=== PATIENT | male | born 1965 | race Caucasian/White ===

== ENCOUNTER 2023-03-19 18:10 | Emergency (ER) | payer OTHER, MEDICAID, SELFPAY ==
[2023-03-19] VITALS (28 sets, daily range): BP systolic 142–156; BP diastolic 94–111; PULSE 54–82; RESP 12–22; TEMP 36.6; O2SAT 96–98; BMI 31.4
--- NOTE | 2023-03-19 18:31 | PC.NURSE ---
pt presents to ED c/o weakness for the last 3 weeks. pt states that today he decided to take his bp and was running high last reading was 140's/104. pt states he takes lisinopril and amlodopine as prescribed. denies any other symptoms.
--- NOTE | 2023-03-19 18:35 | ED_ITS ---
HPI - Recheck/Abnormal Lab/Rx General Chief Complaint: Recheck/Abnormal Lab/Rx Stated Complaint: HIGH BLOOD PRESSURE ISSUES Time Seen by Provider: 03/19/23 18:35 Source: patient Mode of arrival: walk-in Limitations: no limitations History of Present Illness HPI narrative: Patient presents to emergency department complaining of weakness. Patient states he felt weak for the last 3 weeks. He does not have any other symptoms such as headache, visual disturbance, speech difficulty. He denies any chest pain, shortness of breath. He denies any nausea, vomiting, diarrhea, constipation, abdominal pain. Denies any flank pain, hematuria, dysuria. He denies any fever, chills, or cough. There are no sick contacts in household. He states he just felt weak in the last 3 weeks. His [id number] was in the household and she is a diabetic so she checked his blood sugar and it was 252 times. This is new. The patient is not on any medications and has never been diagnosed with diabetes. Patient also stated that they checked his blood pressure and it was 160s over 100. States the patient took his medication this morning. He did not take it yesterday. Related Data Home Medications Medication Instructions Recorded Confirmed amlodipine 10 mg tablet 10 mg PO DAILY 03/19/23 03/19/23 lisinopril 20 mg tablet 20 mg PO DAILY 03/19/23 03/19/23 Allergies Allergy/AdvReac Type Severity Reaction Status Date / Time No Known Drug Allergies Allergy Verified 03/19/23 18:20 Review of Systems ROS Status of ROS 10 or more systems reviewed and unremarkable except as noted in history and below [facility] Social History Smoking status: Former smoker Exam Narrative Exam Narrative: Nurses notes and vital signs reviewed and patient is not hypoxic. General: Nontoxic, Well-appearing and in no apparent distress. Skin: Warm, dry, no pallor noted. No Rash Head: Normocephalic, atraumatic. Neck: Supple, non-tender. Eye: Pupils are equal, round and EOMI. No scleral icterus. Ears, Nose, Mouth, and Throat: TM clear, no posterior oropharynx erythema or nasal mucosal hypertrophy, uvula is mid-line Oral mucosa is moist Cardiovascular: Regular Rate and Rhythm without murmur, gallop or rub. Respiratory: No accessory muscle use or respiratory distress. Lungs are clear to auscultation, no wheezing, rales or rhonchi Chest Wall: no tenderness Back: No midline thoracic or lumbar vertebral tenderness. No CVA tenderness Musculoskeletal: normal ROM, no calf or popliteal tenderness, no lower extremity edema/swelling GI: obese Abdomen is soft, non-distended. Normal bowel sounds. No masses appreciated. No tenderness to palpation. No rebound, guarding, or rigidity noted. Neurological: A&O x4. No cranial nerve dysfunction observed. No truncal ataxia. Moves all extremities. Sensation intact. Psychiatric: Cooperative and interactive. Normal mood and affect. Constitutional Vital Signs, click to edit/add: Last Vital Signs Temp 98 F 03/19/23 18:13 Pulse 74 03/19/23 18:13 Resp 18 03/19/23 18:13 BP 142/106 H 03/19/23 18:13 Pulse Ox 96 03/19/23 18:13 O2 Del Method Room Air 03/19/23 18:13 Course Vital Signs Vital signs: Vital Signs Temperature 98 F 03/19/23 18:13 Pulse Rate 74 03/19/23 18:13 Respiratory Rate 18 03/19/23 18:13 Blood Pressure 142/106 H 03/19/23 18:13 Pulse Oximetry 96 03/19/23 18:13 Oxygen Delivery Method Room Air 03/19/23 18:13 Temperature 98 F 03/19/23 18:13 Pulse Rate 74 03/19/23 18:13 Respiratory Rate 18 03/19/23 18:13 Blood Pressure 142/106 H 03/19/23 18:13 Pulse Oximetry 96 03/19/23 18:13 Oxygen Delivery Method Room Air 03/19/23 18:13 MDM - Recheck/Abnormal Lab/Rx MDM Narrative Medical decision making narrative: Patient was given 20 mg of lisinopril by mouth. He'll be given 1 L of normal saline and labs will be checked. Urinalysis and chest x-ray are pending. Patient will be signed out to Dr. Vela at the end of my shift awaiting labs, reevaluation, and disposition. Lab Data Attestation: I reviewed the patient's lab results. Labs: Lab Results 03/19/23 Range/Units 18:30 WBC 9.2 (4.0-11.0) 10^3/uL RBC 4.96 (4.70-6.10) 10^6/uL Hgb 15.3 (14.0-18.0) g/dL Hct 43.3 (42.0-54.0) % MCV 87.3 (80.0-94.0) fL MCH 30.8 (25.9-34.0) pg MCHC 35.3 H (29.9-35.2) g/dL RDW 12.2 (11.0-15.0) % Plt Count 238 (150-450) 10^3/uL MPV 10.4 (9.5-13.5) fL Neut % (Auto) 53.8 (43.0-75.0) % Lymph % (Auto) 37.6 (20.5-60.0) % [place] % (Auto) 5.7 (1.7-12.0) % Eos % (Auto) 2.2 (0.9-7.0) % Baso % (Auto) 0.5 (0.2-2.0) % Neut # (Auto) 4.9 (1.4-6.5) 10^3/uL Lymph # (Auto) 3.5 (1.2-3.8) 10^3/uL [place] # (Auto) 0.5 (0.3-0.8) 10^3/uL Eos # (Auto) 0.2 (0.0-0.7) 10^3/uL Baso # (Auto) 0.1 (0.0-0.1) 10^3/uL Abs Immat Gran (auto) 0.02 (0.00-0.03) 10^3/uL Imm/Tot Granulo (auto) 0.2 (0.0-0.5) % ECG Data Attestation: I personally reviewed and interpreted this ECG as follows: Interpretation: EKG shows sinus rhythm 71 bpm, normal axis, no acute ischemic changes. Discharge Plan Discharge Chief Complaint: Recheck/Abnormal Lab/Rx Clinical Impression: Diabetes, Hypertension Patient Disposition: Still a Patient Prescriptions / Home Meds: No Action lisinopril 20 mg tablet 20 mg PO DAILY amlodipine 10 mg tablet 10 mg PO DAILY Referrals: Rekha Dennis [Primary Care Provider] - 1 week
--- NOTE | 2023-03-19 18:35 | ECG_ITS ---
[facility] Test Date: 2023-03-19 Pat Name: MEDINA NAIK Department: Room: - Gender: Male Ground [employer]: : 1965 Requested By: JENNIFER DE LA O Order Number: [id number] Reading MD: NIC BELL Measurements Intervals [place] Rate: 71 P: 47 WY: 146 QRS: 1 QRSD: 92 T: 22 QT: 394 QTc: 417 Interpretive Statements 1100 Sinus rhythm [address] depression [address] & [place] abnormality 5211 Minimal voltage criteria for LVH, may be normal variant 9130 borderline ECG No previous ECG available for comparison Electronically Signed On 03-20-2023 18:24:40 EDT by NIC BELL
[2023-03-19 18:53] LABS: Basophils Absolute Auto 0.1 10^3/uL (0.0-0.1); Basophils Percent Auto 0.5 % (0.2-2.0); Eosinophils Absolute Auto 0.2 10^3/uL (0.0-0.7); Eosinophils Percent Auto 2.2 % (0.9-7.0); Hematocrit 43.3 % (42.0-54.0); Hemoglobin 15.3 g/dL (14.0-18.0); Immature Granulocytes Abs Auto 0.02 10^3/uL (0.00-0.03); Immature Granulocytes Pct Auto 0.2 % (0.0-0.5); Lymphocytes Absolute Auto 3.5 10^3/uL (1.2-3.8); Lymphocytes Percent Auto 37.6 % (20.5-60.0); Mean Corpuscular HGB Conc 35.3 g/dL (29.9-35.2); Mean Corpuscular Hemoglobin 30.8 pg (25.9-34.0); Mean Corpuscular Volume 87.3 fL (80.0-94.0); Mean Platelet Volume 10.4 fL (9.5-13.5); Monocytes Absolute Auto 0.5 10^3/uL (0.3-0.8); Monocytes Percent Auto 5.7 % (1.7-12.0); Neutrophils Absolute Auto 4.9 10^3/uL (1.4-6.5); Neutrophils Percent Auto 53.8 % (43.0-75.0); Platelet Count 238 10^3/uL (150-450); Red Blood Count 4.96 10^6/uL (4.70-6.10); Red Cell Distribution Width 12.2 % (11.0-15.0); White Blood Count 9.2 10^3/uL (4.0-11.0)
[2023-03-19] MEDS: 0.9 % SODIUM CHLORIDE 1,000 ML 1000 ML IV (19:11)
[2023-03-19] MEDS: LISINOPRIL 10 MG TABLET 20 MG PO (19:11)
[2023-03-19 19:14] LABS: Alanine Aminotransferase 82 U/L (16-63); Albumin Globulin Ratio 1.3; Albumin Level 4.1 g/dL (3.4-5.0); Alkaline Phosphatase 66 U/L (46-116); Anion Gap 14.9; Aspartate Amino Transferase 28 U/L (15-37); BUN Creatinine Ratio 13.5; Bilirubin Total 0.4 mg/dL (0.2-1.0); Calcium 8.5 mg/dL (8.5-10.1); Carbon Dioxide 26.5 mmol/L (21.0-32.0); Chloride 102 mmol/L (98-107); Estimated GFR (African America >60 (>=60); Estimated GFR (Non-African Ame >60 (>=60); Globulin 3.1 g/dL; Glucose 175 mg/dL (74-106); Potassium 3.4 mmol/L (3.5-5.1); Sodium 140 mmol/L (136-145); Total Protein 7.2 g/dL (6.4-8.2); Troponin I High Sensitivity 6.3 pg/mL (4.0-76.1)
[2023-03-19 20:46] LABS: Bilirubin Urine NEGATIVE (NEGATIVE); Blood Urine NEGATIVE (NEGATIVE); Clarity Urine CLEAR (CLEAR); Color Urine LT. YELLOW (YELLOW); Glucose Urine UA NEGATIVE (NEGATIVE); Ketones Urine NEGATIVE (NEGATIVE); Leukocyte Esterase Urine SMALL (NEGATIVE); Nitrite Urine NEGATIVE (NEGATIVE); Protein Urine NEGATIVE (NEG/TRACE); Urobilinogen Urine 0.2 EU/dL (0.2-1.0)
[2023-03-19 21:02] LABS: Troponin I High Sensitivity 6.4 pg/mL (4.0-76.1)
[2023-03-19 21:12] LABS: Urine Microscopic Indicated YES
[2023-03-19 21:15] LABS: RBC Urine 0-2 #/HPF (0-2)
[2023-03-19 21:16] LABS: Bacteria Urine NONE SEEN #/HPF (NONE SEEN); Cast Seen? NONE SEEN #/LPF (NONE SEEN); Crystals Seen? None Seen #/HPF (None Seen); Mucus Urine NONE SEEN (NONE SEEN); Squamous Epithelial Cell Urine RARE #/LPF (NONE/RARE); Urine Culture Indicated YES; WBC Urine 0-2 #/HPF (NONE SEEN)
[2023-03-19] MEDS: CEPHALEXIN 500 MG CAPSULE 1000 MG PO (22:20)
== END 2023-03-19 22:30 | disposition home or self-care (01) ==
PROVIDERS: Emergency Medicine; Emergency Provider Internal Medicine; PCP Internal Medicine
DX: E11.9 Type 2 diabetes mellitus without complications (principal); I10 Essential (primary) hypertension; Z87.891 Personal history of nicotine dependence; Z79.899 Other long term (current) drug therapy
CPT/HCPCS: 36415; 80053; 81001; 81003; 84484; 85025; 87086; 93005; 99285